=== PATIENT | male | born 1990 | race Hispanic/Latino ===

== ENCOUNTER 2018-09-02 09:47 | Emergency (ER) | payer OTHER ==
[2018-09-02 10:31] LABS: BASO # 0.1 10^3/uL (0.0-0.2); BASO % 0.4 % (0.0-1.0); EOS % 0.3 % (0.0-3.0); HEMATOCRIT 45.2 % (42.0-52.0); HEMOGLOBIN 14.6 g/dl (13.5-17.5); IMMATURE GRANULOCYTE % 0.4 % (0-3.0); LYMPH % 7.3 % (24.0-44.0); MEAN CORPUSCULAR HEMOGLOBIN 27.5 pg (27.0-33.0); MEAN CORPUSCULAR HGB CONC 32.3 g/dl (32.0-36.5); MEAN CORPUSCULAR VOLUME 85.3 fl (80.0-96.0); MONO # 0.8 10^3/uL (0.0-0.8); MONO % 5.6 % (0.0-5.0); NEUTROPHILS # 12.2 10^3/uL (1.8-7.7); PLATELET COUNT, AUTOMATED 267 10^3/uL (150-450); WHITE BLOOD COUNT 14.2 10^3/uL (4.0-10.0)
[2018-09-02] MEDS: ASPIRIN 81 MG CHEW TABLET PO (10:35)
[2018-09-02] MEDS: ONDANSETRON 4MG/2ML VIAL (J2405) IV ×2 (10:36→11:36)
[2018-09-02] MEDS: MORPHINE 4 MG/ML 1ML VIAL/SYRINGE (J2270) IV (10:36)
[2018-09-02 10:48] LABS: D-DIMER QUANT 305.8 ng/ml (<500)
[2018-09-02 10:57] LABS: ANION GAP 7 MEQ/L (8-16); BLOOD UREA NITROGEN 10 MG/DL (7-18); CARBON DIOXIDE LEVEL 26 MEQ/L (21-32); CHLORIDE LEVEL 106 MEQ/L (98-107); CPK CREATINE PHOSPHOKINASE 339 U/L (39-308); CREATININE FOR GFR 0.81 MG/DL (0.70-1.30); GLOMERULAR FILTRATION RATE > 60.0 (>60); GLUCOSE, FASTING 116 MG/DL (70-100); MB/CK RELATIVE INDEX 0.41 (< OR =4); POTASSIUM SERUM 3.6 MEQ/L (3.5-5.1); SODIUM LEVEL 139 MEQ/L (136-145); TROPONIN I < 0.02 NG/ML (< 0.10)
[2018-09-02] MEDS ORDERED: ISOVUE-370 76% 100ML VIAL (Q9967) As Ordered (11:10)
[2018-09-02] MEDS: NS 1,000 ML IV (11:36)
[2018-09-02 11:47] LABS: ALBUMIN 4.2 GM/DL (3.2-5.2); ALKALINE PHOSPHATASE 73 U/L (45-117); ALT/SGPT 42 U/L (12-78); AST/SGOT 24 U/L (7-37); BILIRUBIN,DIRECT 0.2 MG/DL (0.0-0.2); BILIRUBIN,TOTAL 0.6 MG/DL (0.2-1.0); LIPASE 103 U/L (73-393); TOTAL PROTEIN 7.7 GM/DL (6.4-8.2)
[2018-09-02] MEDS: GI COCKTAIL 50ML BTL(HYOSCYAMINE/MAALOX/LIDOCAINE VISCOUS)(1:3:1) PO (12:01)
== END 2018-09-02 13:22 | disposition home or self-care (01) ==
LOC: M ED 09:47
DX: R07.9 Chest pain, unspecified (principal); K21.9 Gastro-esophageal reflux disease without esophagitis; R00.1 Bradycardia, unspecified; I49.9 Cardiac arrhythmia, unspecified; I10 Essential (primary) hypertension; E78.5 Hyperlipidemia, unspecified; J45.909 Unspecified asthma, uncomplicated; F17.200 Nicotine dependence, unspecified, uncomplicated
CPT/HCPCS: J2270

== ENCOUNTER → 2019-02-20 | Outpatient (CLI) | payer OTHER ==
[~2019-02-20] MED LIST: PROT1TAB2 PO; VENTAER INH
--- NOTE | 2019-02-20 09:43 | REP ---
LEFT FOOT, FOUR VIEWS: HISTORY: Pain. There is no acute fracture or dislocation. The joint spaces are normal in appearance. IMPRESSION:There is no acute fracture or dislocation. Electronically Signed by Sukhdev Davis MD 02/20/2019 09:56 A
== END ==
LOC: M RAD 08:30
PROVIDERS: ATTEND Surgery
DX: M79.672 Pain in left foot (principal)

== ENCOUNTER 2019-03-20 16:42 | Emergency (ER) | payer OTHER ==
[~2019-03-20] VITALS: Ht 165.1 cm; Wt 88.6 kg
[2019-03-20] MEDS ORDERED: IBUP-1022 PO (16:48)
--- NOTE | 2019-03-20 17:23 | REP ---
Clinical: Trauma with left ankle pain. Technique: AP, lateral, bilateral oblique views of the left ankle. Findings: Mild lateral swelling suggests inversion injury. No acute fracture or dislocation. Joint spaces and ankle mortise are intact. No subcutaneous emphysema or radiodense foreign body. Impression: Mild lateral swelling. No acute fracture. Electronically Signed by Robbi Alberts MD 03/20/2019 05:15 P
[2019-03-20 17:51] VITALS: BP 141/63
== END 2019-03-20 17:59 | disposition home or self-care (01) ==
LOC: M ED 16:42
DX: S93.402A Sprain of unspecified ligament of left ankle, initial encounter (principal); X50.9XXA Other and unspecified overexertion or strenuous movements or postures, initial encounter; Y92.148 Other place in prison as the place of occurrence of the external cause